=== PATIENT | male | born 1965 | race Caucasian/White ===

== ENCOUNTER 2019-12-03 11:27 | Emergency (ER) | payer SELFPAY ==
[2019-12-03] MEDS ORDERED: BUPIVACAINE 0.5% PF 10 ML VIAL ONE (12:16)
[2019-12-03] MEDS ORDERED: TETANUS & DIPHTHERIA TOX,ADULT 0.5 ML VIAL ONE (12:16)
--- NOTE | 2019-12-03 12:36 | RAD REPORT ---
EXAM DESCRIPTION: RAD - Humerus Left - 12/03/2019 12:31 pm CLINICAL HISTORY: laceration, rule out FB COMPARISON: No comparisons FINDINGS: No fracture or radiopaque foreign body appreciated.
[2019-12-03] MEDS ORDERED: LIDOCAINE 1% MPF 30 ML VIAL ONE (13:49)
--- NOTE | 2019-12-03 14:26 | EDPHYS ---
Physician Documentation [facility] Name: Alonzo Day Age: 54 yrs Sex: Male : 1965 Arrival Date: 12/03/2019 Time: 11:34 Bed 23 Private MD: HEMANTH Physician Marcial Stallworth HPI: 12/02 11:48 This 54 yrs old Male presents to ER via Ambulatory with complaints of jmm Laceration To Arm. 11:48 The patient has a laceration related to: sawing. Onset: The symptoms/episode jmm began/occurred acutely, just prior to arrival. Associated signs and symptoms: Pertinent negatives: heavy bleeding, loss of consciousness. This is a 54 year old male with no chronic medical conditions that presents to the ED with complaints of left arm laceration. Patient states slipping and accidently sawing his arm. Denies other injury. Patient is not UTD on tetanus immunization. . Historical: - Allergies: 11:49 No Known Allergies; ss - Immunization history:: Adult Immunizations up to date. - Social history:: Smoking status: Patient denies any tobacco usage or history of. ROS: 11:48 Constitutional: Negative for fever, chills, and weight loss, Cardiovascular: Negative jmm for chest pain, palpitations, and edema, Respiratory: Negative for shortness of breath, cough, wheezing, and pleuritic chest pain. 11:48 MS/extremity: Positive for laceration. 11:48 Skin: Positive for laceration(s). 11:48 All other systems are negative. Exam: 11:48 Constitutional: This is a well developed, well nourished patient who is awake, alert, jmm and in no acute distress. Head/Face: atraumatic. Eyes: EOMI, no conjunctival erythema appreciated ENT: Moist Mucus Membranes Neck: Trachea midline, Supple Chest/axilla: Normal chest wall appearance and motion. Cardiovascular: Regular rate and rhythm. No edema appreciated Respiratory: Normal respirations, no respiratory distress appreciated Abdomen/GI: Non distended, soft Back: Normal ROM 11:48 MS/ Extremity: Moves all extremities, no obvious deformities appreciated, no edema noted to the lower extremities Neuro: Awake and alert, normal gait Psych: Behavior is normal, Mood is normal, Patient is cooperative and pleasant 11:48 Skin: injury, laceration(s), the wound is approximately 6 cm(s), of the left bicep. Vital Signs: 11:43 BP 146 / 95; Pulse 90; Resp 18; Pulse Ox 97% on R/A; Weight 117.93 kg; Height 6 ft. 2 ss in. (187.96 cm); Pain 6/10; 11:43 Body Mass Index 33.38 (117.93 kg, 187.96 cm) ss Laceration: 14:20 Wound Repair of 6cm ( 2.4in ) subcutaneous laceration to left arm. Distal m neuro/vascular/tendon intact. Anesthesia: Local anesthetic administered with 20 mls of Lido/Marcaine. Wound prep: Extensive cleansing, Wound irrigation, Copious irrigation. Skin closed with 11 4-0 Prolene using simple sutures and sterile technique. Patient tolerated well. MDM: 11:[address] [facility] 14:20 Data reviewed: vital signs, nurses notes. Counseling: I had a detailed discussion with [facility] the patient and/or guardian regarding: the historical points, exam findings, and any diagnostic results supporting the discharge/admit diagnosis, the need for outpatient follow up, to return to the emergency department if symptoms worsen or persist or if there are any questions or concerns that arise at home. ED course: Patient given wound infection return precautions. Patient understood and agrees with the plan of care. . 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 Exp: aa5 09/10/2021. Lot #: [id number]. } Route: IM; Site: right deltoid; 15:02 Follow up: Response: No adverse reaction ca1 14:20 Drug: Marcaine (0.5 %) 20 ml {Note: administered by PA. Regino} Volume: 10 ml; aa5 Route: Infiltration; 14:20 Drug: Lidocaine (1 %) 1 vials {Note: administered by J.Mickail, PA .} Volume: 20 ml; aa5 Route: Infiltration; Disposition: 16:05 Co-signature as Attending Physician, Marcial Stallworth MD I agree with the assessment and ash plan of care. Disposition: 12/03/19 14:25 Discharged to Home. Impression: Laceration of the left arm. - Condition is Stable. - Discharge Instructions: Laceration Care, Adult. - Prescriptions for Bactrim DS 800- 160 mg Oral Tablet - take 1 tablet by ORAL route every 12 hours for 10 days; 20 tablet. - Medication Reconciliation Form, Thank You Letter, Antibiotic Education, Prescription Opioid Use form. - Follow up: Private Physician; When: 1 week; Reason: Recheck today's complaints, Continuance of care, Staple/Suture removal, Re-evaluation by your physician. Signatures: Dispatcher [employer] EDMarcial Abdi MD MD cha Mickail, Joel, PA PA jmm Calderon, Audri, RN SARAH aa5 Brooke Chavez RN RN ss Ayde Valdes RN RN ca1 Corrections: (The following items were deleted from the chart) 15:20 14:25 12/03/2019 14:25 Discharged to Home. Impression: Laceration of the left arm. aa5 Condition is Stable. Forms are Medication Reconciliation Form, Thank You Letter, Antibiotic Education, Prescription Opioid Use. Follow up: Private Physician; When: 1 week; Reason: Recheck today's complaints, Continuance of care, Staple/Suture removal, Re-evaluation by your physician. luis
--- NOTE | 2019-12-03 14:26 | ER ---
Nurse's Notes [facility] Name: Alonzo Day Age: 54 yrs Sex: Male : 1965 Arrival Date: 12/03/2019 Time: 11:34 Bed 23 Private MD: Diagnosis: Laceration of the left arm Presentation: 12/02 11:43 Chief complaint: Patient states: 4-5 inch laceration to L upper arm, sustained 20 ss minutes ago with chop saw. No active bleeding noted at this time. Adipose tissue exposed. Coronavirus screen: Proceed with normal triage. Patient denies a cough. Patient denies shortness of breath or difficulty breathing. Patient denies measured and/or subjective temperature greater than 100.4F prior to today's visit. Patient denies travel on a cruise ship or to a country the [facility] currently lists as an affected area. Patient denies contact with known and/or suspected case of COVID-19. Ebola Screen: Patient denies exposure to infectious person. Patient denies travel to an Ebola-affected area in the 21 days before illness onset. 11:43 Method Of Arrival: Ambulatory ss 11:48 Complicating Factors: sawdust on patients arm, washed off during triage. Initial Sepsis ss Screen: Does the patient meet any 2 criteria? Does the patient have a suspected source of infection? No. Patient's initial sepsis screen is negative. Risk Assessment: Do you want to hurt yourself or someone else? Patient reports no desire to harm self or others. Onset of symptoms was December 03, 2019. 11:48 Acuity: BRAEDEN 3 ss Historical: - Allergies: 11:49 No Known Allergies; ss - Immunization history:: Adult Immunizations up to date. - Social history:: Smoking status: Patient denies any tobacco usage or history of. Screenin:50 Abuse screen: Denies threats or abuse. Nutritional screening: No deficits noted. aa5 Tuberculosis screening: No symptoms or risk factors identified. Fall Risk None identified. Assessment: 11:50 General: Appears uncomfortable, Behavior is calm, cooperative. Pain: Complains of pain aa5 in left bicep Pain currently is 6 out of 10 on a pain scale. Quality of pain is described as sharp, throbbing. Neuro: Level of Consciousness is awake, alert, obeys commands, Oriented to person, place, time, situation. Cardiovascular: Patient's skin is warm and dry. Respiratory: Airway is patent Respiratory effort is even, unlabored, Respiratory pattern is regular, symmetrical. GI: No signs and/or symptoms were reported involving the gastrointestinal system. : No signs and/or symptoms were reported regarding the genitourinary system. EENT: No signs and/or symptoms were reported regarding the EENT system. Derm: Skin is pink, warm \T\ dry. Musculoskeletal: Range of motion: intact in all extremities. Injury Description: Laceration sustained to left bicep is clean, approximately 4-5 in long is bleeding a small amount. 12:15 Reassessment: Patient is alert, oriented x 3, equal unlabored respirations, skin aa5 warm/dry/pink. X-ray completed by radiology, pt notified of wait time for results. . 14:20 Reassessment: Patient is alert, oriented x 3, equal unlabored respirations, skin aa5 warm/dry/pink. 15:18 Reassessment: Patient is alert, oriented x 3, equal unlabored respirations, skin aa5 warm/dry/pink. Vital Signs: 11:43 BP 146 / 95; Pulse 90; Resp 18; Pulse Ox 97% on R/A; Weight 117.93 kg; Height 6 ft. 2 ss in. (187.96 cm); Pain 6/10; 11:43 Body Mass Index 33.38 (117.93 kg, 187.96 cm) ED Course: 11:34 Patient arrived in ED. ss 11:35 Michael Breaux PA is PHCP. [facility] 11:35 Marcial Stallworth MD is Attending Physician. [facility] 11:49 Triage completed. ss 11:49 Arm band placed on right wrist. ss 11:50 Patient has correct armband on for positive identification. Bed in low position. Call aa5 light in reach. Side rails up X 1. 12:09 Rita Bustamante, SARAH is Primary Nurse. aa5 12:31 Humerus Left XRAY In Process Unspecified. EDMS 14:20 Assist provider with laceration repair on left bicep using sutures. Set up tray. aa5 Performed by Michael VARMA Patient tolerated well. 15:10 Dressings: non-adherent dressing x 1 left bicep. ca1 15:18 Patient did not have IV access during this emergency room visit. 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 Exp: aa5 09/10/2021. Lot #: [id number]. } Route: IM; Site: right deltoid; 15:02 Follow up: Response: No adverse reaction ca1 14:20 Drug: Marcaine (0.5 %) 20 ml {Note: administered by PA. Regino} Volume: 10 ml; aa5 Route: Infiltration; 14:20 Drug: Lidocaine (1 %) 1 vials {Note: administered by KOJO Lacy} Volume: 20 ml; aa5 Route: Infiltration; Outcome: 14:25 Discharge ordered by MD. smith 15:18 Discharged to home ambulatory. aa5 15:18 Condition: stable 15:18 Discharge instructions given to patient, Instructed on discharge instructions, follow up and referral plans. medication usage, Demonstrated understanding of instructions, follow-up care, medications, Prescriptions given X 1. 15:20 Patient left the ED. aa5 Signatures: Dispatcher [employer] EDMS Michael Breaux PA PA jmm Calderon, Audri, RN RN aa5 Brooke Chavez RN RN ss Ayde Valdes RN RN ca1
[2019-12-03 15:24] VITALS: BP 146/95; O2SAT 97
== END 2019-12-03 15:20 | disposition home or self-care (01) ==
LOC: ER 11:27
PROC: 0JQF0ZZ Repair Left Upper Arm Subcutaneous Tissue and Fascia, Open Approach (ICD-10-PCS; principal; 2019-12-03)
DX: S41.112A Laceration without foreign body of left upper arm, initial encounter (principal); W29.8XXA Contact with other powered hand tools and household machinery, initial encounter; Y93.9 Activity, unspecified; Y92.9 Unspecified place or not applicable; Z23 Encounter for immunization
CPT/HCPCS: 90471; 90714; 99283